=== PATIENT | male | born 1980 | race Two or more races ===

== ENCOUNTER 2018-08-04 12:05 | Emergency (ER) | payer MEDICAID ==
[~2018-08-04] VITALS: Ht 182.9 cm; Wt 80.0 kg
--- NOTE | 2018-08-04 13:00 | NUR ---
PT ARRIVED TO ROOM C/O BEING LIGHTHEADED AND DIZZY. STATES IT STARTED ON TUESDAY WHEN HE WAS MOVING INTO A NEW APARTMENT AND HAS NOT STOPPED SINCE THEN. AT BEDSIDE. UPON STANDING, PT STATES HE IS DIZZY. NADN. CALL LIGHT IN REACH. VSS.
[2018-08-04] MEDS ORDERED: SODIUM CHLORIDE FLUSH 10ML SYR IVF ONE (13:30)
[2018-08-04] MEDS ORDERED: SODIUM CHLORIDE 0.9% 1,000ML IVBOLUS ONE (13:30)
[2018-08-04 13:45] LABS: ALANINE AMINOTRANSFERASE 32 U/L (12-78); ALBUMIN 4.9 g/dL (3.4-5.0); ANION GAP 6 mmol/L (5-15); CALCIUM 9.6 mg/dL (8.5-10.1); CHLORIDE 106 mmol/L (98-107); CREATININE 1.08 mg/dL (0.7-1.3)
[2018-08-04 13:47] LABS: ALKALINE PHOSPHATASE 69 U/L (45-117); BASOPHILS # (AUTO) 0.02 x10^3/uL (0-0.1); BASOPHILS % (AUTO) 0 % (0-1); BILIRUBIN,TOTAL 1.7 mg/dL (0.2-1.0); EOSINOPHILS # (AUTO) 0.04 x10^3/uL (0-0.4); EOSINOPHILS % (AUTO) 1 % (1-7); LYMPHOCYTES # (AUTO) 1.58 x10^3/uL (1-3.4); LYMPHOCYTES % (AUTO) 19 % (22-44); MD NO; MEAN CORPUSCULAR HEMOGLOBIN 29.8 pg (27.5-34.5); MEAN CORPUSCULAR VOLUME 90.3 fL (81-97); MEAN PLATELET VOLUME 8.7 fL (7.4-10.4); MONOCYTES # (AUTO) 0.57 x10^3/uL (0.2-0.8); MONOCYTES % (AUTO) 7 % (2-9); NEUTROPHILS # (AUTO) 6.26 x10^3/uL (1.8-6.8); NEUTROPHILS % (AUTO) 74 % (42-75); PLATELET COUNT 295 x10^3/uL (130-400); RED BLOOD COUNT 5.74 x10^6/uL (4.38-5.82); RED CELL DISTRIBUTION WIDTH 13.1 % (9.4-14.8); TOTAL PROTEIN 8.3 g/dL (6.4-8.2)
--- NOTE | 2018-08-04 13:49 | NUR ---
PT RESTING ON GURNEY. NADN. BOWMAN.
--- NOTE | 2018-08-04 14:38 | NUR ---
CARE FOR DC ONLY PROVIDED. PT DRESSED AND AMB IN ROOM. IV DC'D BY KALPESH KING. REVIEWED DC INSTRUCTIONS WITH PT, UNDERSTANDING VERBALIZED. PT LEFT AMB, GAIT STEADY.
[2018-08-04 14:39] VITALS: BP 119/79
== END 2018-08-04 14:42 | disposition home or self-care (01) ==
LOC: ED 14:27
DX: R42 Dizziness and giddiness (principal); E86.9 Volume depletion, unspecified
CPT/HCPCS: 36415; 80053; 83735; 85025; 93005; 96360; 99284; J7030